=== PATIENT | male | born 1940 | race Caucasian/White ===

== ENCOUNTER 2020-01-01 10:24 | Outpatient (CLI) | payer OTHER, SELFPAY ==
--- NOTE | 2020-01-01 10:45 | XR_ITS ---
WS: [id number] XR chest 2V* [id number] REASON FOR EXAM: COUGH FINDINGS: No comparison examination. The heart and mediastinum are within normal limits for age. Calcified granulomatous disease in both hemithoraces. Chronic appearing interstitial changes in both lung bases. No definite acute pulmonary parenchymal or pleural abnormality. There is moderate hyperexpansion with flattening of both hemidiaphragms. 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 XR/XR chest 2V* [id number] IMPRESSION: There are interstitial changes in the lung bases, particularly on the left whic h appear chronic, however if cough persists recommend follow-up chest x-ray.
== END 2020-01-01 10:25 | disposition home or self-care (01) ==
LOC: LAB 10:33
PROVIDERS: PCP Family Medicine; Visit Provider Family Medicine
DX: R05 Cough (principal)
CPT/HCPCS: 71046

== ENCOUNTER 2020-02-04 10:14 | Emergency (ER) | payer MEDICARE, OTHER, SELFPAY ==
[2020-02-04 10:25] VITALS: BP 140/79; PULSE 68; PULSE 69; RESP 20; TEMP 36.8; O2SAT 93; BMI 27.6
--- NOTE | 2020-02-04 10:30 | XRR_ITS ---
PROCEDURE INFORMATION: Exam: XR Chest, 1 View Exam date and time: 02/04/2020 10:52 AM Age: 79 years old Clinical indication: Other: Syncope TECHNIQUE: Imaging protocol: XR of the chest Views: 1 view. COMPARISON: CR XR chest 2V* [id number] 01/01/2020 10:50 AM FINDINGS: Lungs: Low lung volumes seen. The lungs are otherwise clear No consolidation. Pleural space: Unremarkable. No pleural effusion. No pneumothorax. Heart/Mediastinum: Unremarkable. No cardiomegaly. Bones/joints: Unremarkable. XR/XR chest 1V portable [id number] IMPRESSION: No acute findings.
--- NOTE | 2020-02-04 11:04 | ED_ITS ---
HPI - General Adult General: Chief complaint: Infusion: Covid [facility] Stated complaint: COVID EXPOSURE Time Seen by Provider: 02/04/20 10:30 Source: patient Mode of arrival: ambulatory Limitations: no limitations History of Present Illness: HPI narrative: 79-year-old male presenting to the ED with complaints of general malaise, decreased appetite, and exposure to Covid. His was treated here yesterday with monoclonal antibody infusion after she tested positive for Covid. The patient denies fever, cough, nausea, vomiting. He has had decreased intake, and feels generally fatigued. No headache, sore throat. No shortness of breath. No chest pain or abdominal pain. Associated symptoms: Reports malaise; Deny chest pain, confusion, diaphoresis, dyspnea, headache(s), nausea, rash, palpitations or vomiting Review of Systems General: Reports: 10 or more systems reviewed and unremarkable except in HPI and below Const: Reports: change in appetite, fatigue and malaise; Denies: night sweats or diaphoresis ENMT: Denies: throat pain, nasal congestion or post nasal drip Card: Denies: chest pain, palpitations, irregular heart rhythm, swelling of feet/ankles or lightheadedness Resp: Denies: dyspnea, productive cough, wheezing or pain on inspiration GI: Denies: nausea or vomiting : Denies: difficulty urinating, dysuria or urinary frequency Skin/Breast: Denies: rash, pruritus or erythema Neuro: Denies: headache(s), numbness in extremities, dizziness, vertigo or confusion Gentry/Lymph: Denies: easy bruising or easy bleeding Physical Exam Const: COMMON NORMALS: no acute distress, average body habitus, patient oriented x3, healthy appearing, alert and well nourished GENERAL APPEARANCE: cooperative and frail appearing; not in distress, not lethargic, not ill appearing and not diaphoretic ORIENTATION/CONSCIOUSNESS: not lethargic HENMT: COMMON NORMALS: normocephalic and atraumatic HEAD & SCALP: normocephalic and atraumatic Eye: COMMON NORMALS: Equal, round and reactive pupils present, EOMs intact bilaterally and conjunctivae normal GENERAL EYE: appearance normal, both eyes and all related structures CONJUNCTIVA: Yes conjunctivae normal PUPIL: Yes Equal, round and reactive pupils present Neck/C-Spine: COMMON NORMALS: full ROM, no lymphadenopathy, supple and no JVD Resp: COMMON NORMALS: normal respiratory effort, No retractions, No use of accessory muscles and clear to auscultation bilaterally EFFORT & INSPECTION: Yes able to speak in complete sentences, No tachypneic, No respiratory distress and No labored AUSCULTATION: clear to auscultation bilaterally Cardio: COMMON NORMALS: no JVD, regular rate and regular rhythm JUGULAR VENOUS DISTENTION: no JVD RATE: regular rate RHYTHM: regular rhythm GI: COMMON NORMALS: Normal to inspection, nondistended, normoactive bowel sounds present, Soft to palpation, non-tender and No hepatosplenomegaly present INSPECTION: Yes normal to inspection PALPATION: Yes Soft to palpation and Yes No hepatosplenomegaly present Extremity: COMMON NORMALS: normal to inspection, capillary refill normal and no clubbing, cyanosis or edema Neuro: COMMON NORMALS: patient oriented x3 SENSORIUM/ORIENTATION: Yes alert and No lethargic CRANIAL NERVES: Yes CN normal except as noted Skin: COMMON NORMALS: no rashes or lesions noted, no wounds and no jaundice GENERAL SKIN EXAM: no rashes or lesions noted Course Vital Signs: Vital signs: Vital Signs Temperature 98.2 F 02/04/20 10:25 Pulse Rate 71 02/04/20 13:09 Respiratory Rate 20 H 02/04/20 13:09 Blood Pressure 144/79 02/04/20 13:09 Pulse Oximetry 94 02/04/20 13:09 MDM - General Adult MDM Narrative: Medical decision making narrative: 79-year-old male presenting with generalized malaise, fatigue. His was treated here yesterday after she tested positive for Covid. No obvious infiltrates on chest x-ray Rapid Covid swab negative. PCR sent out At this time will not be able to administer the monoclonal antibody infusion. Discussed that if his PCR Covid is positive and he is having worsening symptoms he can certainly be evaluated again at that time to see if he would possibly benefit from it. At the time of discharge, patient was awake alert, agreeable to going home. No respiratory distress, O2 sats normal on room air. Tolerating p.o. without difficulty. Differential Diagnosis: Differential Diagnosis: Covid, pneumonia, dehydration, renal failure, electrolyte abnormality, ACS, STEMI Medical Records: Attestation: I reviewed the patient's medical records. Lab Data: Attestation: I reviewed the patient's lab results. Labs: Lab Results 02/04/20 02/04/20 02/04/20 Range/Units 10:37 11:15 11:15 WBC 6.8 (4.0-10.0) 10^3/ uL RBC 5.02 (4.1-5.3) 10^6/u L Hgb 15.6 (11.7-16.6) g/dL Hct 46.4 (42.0-52.0) % MCV 92.4 (80-94) fL MCH 31.1 (28.0-34.0) pg MCHC 33.6 (30.0-36.0) g/dL RDW 13.0 (12.1-15.1) % Plt Count 176 (130-400) 10^3/c mm MPV 10.6 H (7.4-10.4) fL Neut % (Auto) 58.8 % Lymph % (Auto) 30.1 % Mccreary % (Auto) 9.7 % Eos % (Auto) 0.9 % Baso % (Auto) 0.1 % Neut # (Auto) 4.01 (1.8-7.7) 10^3/u L Lymph # (Auto) 2.1 (0.8-4.8) 10^3/u L Mccreary # (Auto) 0.7 (0.2-0.9) 10^3/u L Eos # (Auto) 0.1 (0.0-0.8) 10^3/u L Baso # (Auto) 0.0 (0.0-0.1) 10^3/u L Nucleated RBC % (a uto) 0 % Nucleated RBCs # 0.0 /100WBC Sodium 134 L (136-145) mmol/L Potassium 4.2 (3.5-5.1) mmol/L Chloride 100 (98-107) mmol/L Carbon Dioxide 24 (22-29) mmol/L Anion Gap 14.2 (5-19) BUN 22 (8-23) mg/dL Creatinine 0.8 (0.7-1.2) mg/dL GFR Calculation Not Reportable Glucose 126 H (65-115) mg/dL Calculated Osmolal ity 283 L (285-295) mOsm/k g Calcium 9.2 (8.5-10.5) mg/dL Total Bilirubin 1.0 (0.15-1.2) mg/dL AST 35 (0-40) U/L ALT 21 (0-41) U/L Alkaline Phosphata se 72 (40-130) IU/L Total Protein 6.9 (6.6-8.7) g/dL Albumin 3.5 (3.5-5.2) g/dL Globulin 3.4 (1.3-4.6) g/dL SARS-CoV-2 Ag (Rap id) Negative (Negative) Discharge Plan Discharge Patient Disposition: Home Clinical Impression: Close exposure to 2019 novel coronavirus, Malaise and fatigue Condition: Stable Prescriptions: Held furosemide 20 mg tablet 20 mg PO DAILY PRN (Reason: Edema) RF: 0 Hold Instructions: Hold until you are feeling better, eating and drinking normally again. No Action latanoprost 0.005 % drops 1 drp ophthalmic (eye) BEDTIME RF: 0 potassium chloride 10 mEq tablet extended release 10 meq PO DAILY@08 RF: 0 tamsulosin 0.4 mg capsule 0.4 mg PO DAILY@20 RF: 0 timolol maleate 0.5 % drops 1 drp ophthalmic (eye) DAILY RF: 0 Discharge Orders: Discharge ED (Routine); Ordered 02/04/20 Ordered By: Monique Isabel Referrals: Jeremy Lopez MD [Primary Care Provider] - Discharge Diet: Usual diet Discharge Activity: Resume usual activity Activity Restrictions/Additional Instructions: Try to rest and drink plenty of fluids. You will be notified of your Covid PCR test in the next 24 hours. Until then, remain quarantined at home. Return immediately to the ER if you develop chest pain, difficulty breathing, or if you are unable to keep down liquids. Coding Level of Care Code ED Benefits Specialist [employer] F[employer] Exam Comprehensive
[2020-02-04 11:23] LABS: Basophils % 0.1 %; Eosinophils # 0.1 10^3/uL (0.0-0.8); Eosinophils % 0.9 %; Hematocrit 46.4 % (42.0-52.0); Hemoglobin 15.6 g/dL (11.7-16.6); Lymphocytes # 2.1 10^3/uL (0.8-4.8); Lymphocytes % 30.1 %; Mean Corpuscular HGB Conc 33.6 g/dL (30.0-36.0); Mean Corpuscular Hemoglobin 31.1 pg (28.0-34.0); Mean Corpuscular Volume 92.4 fL (80-94); Mean Platelet Volume 10.6 fL (7.4-10.4); Monocytes # 0.7 10^3/uL (0.2-0.9); Monocytes % 9.7 %; Neutrophils # 4.01 10^3/uL (1.8-7.7); Neutrophils % 58.8 %; Nucleated Red Blood Cells % 0 %; Platelet Count 176 10^3/cmm (130-400); Red Blood Count 5.02 10^6/uL (4.1-5.3); White Blood Count 6.8 10^3/uL (4.0-10.0)
[2020-02-04 11:42] LABS: Alanine Aminotransferase 21 U/L (0-41); Albumin Level 3.5 g/dL (3.5-5.2); Alkaline Phosphatase 72 IU/L (40-130); Anion Gap 14.2 (5-19); Aspartate Amino Transferase 35 U/L (0-40); Blood Urea Nitrogen 22 mg/dL (8-23); Calcium 9.2 mg/dL (8.5-10.5); Carbon Dioxide 24 mmol/L (22-29); Chloride 100 mmol/L (98-107); Globulin 3.4 g/dL (1.3-4.6); Glucose 126 mg/dL (65-115); Osmolality Calculated 283 mOsm/kg (285-295); Potassium 4.2 mmol/L (3.5-5.1); Sodium 134 mmol/L (136-145); Total Protein 6.9 g/dL (6.6-8.7)
[2020-02-04 11:43] LABS: SARS Covid-2 Antigen Negative (Negative)
[2020-02-04] MEDS: lactated ringers 1,000 ML 999 ML IV (12:13)
[2020-02-04 12:22] LABS: Slide Review Slide Review Perform
--- NOTE | 2020-02-04 13:07 | PC.NURSE ---
patient was negative for covid rapid send out was done and bam infusion was not done
[2020-02-04 13:09] VITALS: BP 144/79; PULSE 71; RESP 20; O2SAT 94
[2020-02-05 16:07] LABS: Quest SARS-CoV-2 RNA DETECTED (NOT DETECTED)
--- NOTE | 2020-02-06 08:12 | PC.NURSE ---
spoke with pt and informed him of positive COVID results.
== END 2020-02-04 13:11 | disposition home or self-care (01) ==
PROVIDERS: Nurse Practitioner Family; Emergency Provider Family Medicine; PCP Family Medicine
DX: U07.1 COVID-19 (principal)
CPT/HCPCS: 12345; 71045; 80053; 85025; 87426; 87635; 96360; 99282; 99283

== ENCOUNTER → 2020-04-16 10:56 | Outpatient (BNVA) | payer BC, SELFPAY | PROVIDERS: PCP Family Medicine; Visit Provider Internal Medicine Rheumatology | DX: R76.8 Other specified abnormal immunological findings in serum (principal); Z79.899 Other long term (current) drug therapy; J84.9 Interstitial pulmonary disease, unspecified; M19.041 Primary osteoarthritis, right hand; M19.042 Primary osteoarthritis, left hand; Z86.16 Personal history of COVID-19 | CPT/HCPCS: 36415; 99204 ==

== ENCOUNTER 2020-04-26 08:03 | Outpatient (CLI) | payer MEDICARE, BC, SELFPAY ==
--- NOTE | 2020-04-26 08:00 | CT_ITS ---
WS: [id number] CT scan of the chest without IV contrast, prone with inspiration and expiration, supine, additional t wo-dimensional coronal and sagittal reconstruction was performed. 04/26/2020 Clinical Data: R06.02 - Shortness of breath Comparison: Portable chest, 02/04/2020 DLP: 287.[address] scans at [facility] use at least one of these dose optimization techniques: automat ed exposure control; mA and/or kV adjustment per patient size (includes targeted exams where dose is matched to clinical indication); or iterative reconstruction. Findings: No nodules, masses or effusions are seen. The heart size is normal with no pericardial effusion. The pulmonary arterial system and thoracic aorta demonstrate no abnormalities or dilatations. There is co ronary artery calcification. There is no axillary or significant mediastinal adenopathy. No pneumonia or pneumothorax is seen. There is no air trapping on expiration. The upper abdomen shows no abnormalities. 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 CT/CT chest wo con [id number]: [address] scan of the chest with inspiration, expiration and prone imaging . 2. Negative for interstitial change or air trapping.
== END 2020-04-26 08:04 | disposition home or self-care (01) ==
LOC: RADWPI 08:06
PROVIDERS: PCP Family Medicine; Visit Provider Internal Medicine Rheumatology
DX: R06.02 Shortness of breath (principal); Z79.899 Other long term (current) drug therapy; M19.90 Unspecified osteoarthritis, unspecified site; R76.8 Other specified abnormal immunological findings in serum
CPT/HCPCS: 71250; 80076; 82306; 82565; 85025; 85651; 86140; 86160; 86162; 86235; 86255; 86376

== ENCOUNTER → 2020-05-22 11:12 | Outpatient (BNVA) | payer MEDICARE, BC, SELFPAY | PROVIDERS: PCP Family Medicine; Visit Provider Internal Medicine Rheumatology | DX: M19.041 Primary osteoarthritis, right hand (principal); M19.042 Primary osteoarthritis, left hand; R76.8 Other specified abnormal immunological findings in serum; Z20.828 Contact with and (suspected) exposure to other viral communicable diseases; Z86.16 Personal history of COVID-19 | CPT/HCPCS: 99213 ==

== ENCOUNTER 2021-07-01 20:00 | Outpatient (CLI) | payer OTHER, SELFPAY | END 2021-07-01 20:01 | disposition home or self-care (01) | LOC: SLEEP 07-02 08:08 | PROVIDERS: PCP Family Medicine; Visit Provider Family Medicine | DX: G47.33 Obstructive sleep apnea (adult) (pediatric) (principal) | CPT/HCPCS: 95810 ==

== ENCOUNTER 2021-08-20 20:00 | Outpatient (CLI) | payer OTHER, SELFPAY | END 2021-08-20 20:01 | disposition home or self-care (01) | LOC: SLEEP 08-21 07:22 | PROVIDERS: PCP Family Medicine; Visit Provider Family Medicine | DX: G47.33 Obstructive sleep apnea (adult) (pediatric) (principal) | CPT/HCPCS: 95811 ==

== ENCOUNTER 2025-02-07 10:35 | Outpatient (CLI) | payer OTHER, SELFPAY ==
--- NOTE | 2025-02-07 10:47 | USCV_ITS ---
Zac Zuleta Age: 84 Gender: M : 1940 Exam Date: 02/07/2025 11:18 Ordering Phys: Reji Leigh MD Technologist: CHRISTINE Exam Location: [facility] [place] Indication: stenosis Risk Factors: Previous Vascular Surgery: Right Brachial BP: / Left Brachial BP: / Right Left Velocity (cm/s) Spectral Plaque Velocity (cm/s) Spectral Plaque Syst/Diast Broadening Syst/Diast Broadening 97.00/ 17.70 Prox CCA 83.90 / 19.00 137.10/27.20 Mid CCA 101.20/ 28.10 94.60/ 18.80 Distal CCA 78.20 / 22.40 29.60/ 6.00 Prox ICA 27.20 / 10.40 74.80/ 29.70 Mid ICA 51.10 / 21.50 46.50/ 15.80 Distal ICA 62.50 / 26.20 106.40 ECA 76.80 0.80 ICA/CCA 0.80 Antegrade Vertebral Antegrade 117.1/ 20.40 cm/s 28.20/ 9.50 cm/s 0 Tri Subclavian Tri 41.60 112.5 0 CONCLUSIONS Right ICA stenosis <50%. Moderate atheromatous plaque right carotid bulb/ICA. Left ICA stenosis <50%. Moderate atheromatous plaque left carotid bulb/ICA. Normal antegrade Doppler flow noted in the right vertebral artery. Normal antegrade Doppler flow noted in the left vertebral artery. Shon Earl MD (Electronically Signed) Final Date: 07 February 2025 16:51 S
== END 2025-02-07 10:36 | disposition home or self-care (01) ==
LOC: RAD 10:38
PROVIDERS: PCP Family Medicine; Visit Provider Family Medicine Geriatric Medicine
DX: I65.23 Occlusion and stenosis of bilateral carotid arteries (principal)
CPT/HCPCS: 93880